=== PATIENT | female | born 1975 | race Caucasian/White ===

== ENCOUNTER 2017-10-13 23:05 | Emergency (ER) | payer SELFPAY ==
[2017-10-13 23:07] VITALS: BP 148/87; PULSE 90; RESP 16; TEMP 35.7; O2SAT 98; BMI 33.6
--- NOTE | 2017-10-13 23:25 | CT_ITS ---
STUDY: CT ABDOMEN AND PELVIS WITHOUT CONTRAST REASON FOR EXAM: Female, 41 years old. Right-sided pain for one week. Difficulty urinating. RADIATION DOSAGE (If Supplied By Facility): CTDIvol = ( 17.88 ) mGy, DLP = ( 920.40 ) mGycm TECHNIQUE: Transaxial images were obtained from the dome of the diaphragm to the symphysis pubis without oral contrast, and without intravenous contrast. Sagittal and coronal images were reconstructed. Individualized dose optimization techniques were used for this CT. COMPARISON: None. FINDINGS: There is mild atelectasis in the visualized lung bases. The visualized portions of the heart are within normal limits. Normal liver. Normal gallbladder and extrahepatic biliary system. Normal spleen. Normal pancreas. Normal bilateral adrenal glands. Normal right kidney. Normal left kidney. Normal visualized stomach. Normal small intestine. There are multiple colonic diverticula consistent with diverticulosis. The appendix is visualized on axial images 125-134 and it appears normal.. There is minimal atherosclerotic calcification of the abdominal aorta, without a demonstrated aneurysm. Normal inferior vena cava. Normal retroperitoneum. Normal urinary bladder. There is absence of the uterus consistent with a prior hysterectomy. There is a small umbilical hernia which contains fat, but no bowel. There are multilevel degenerative changes of the visualized lumbar spine. CT/Abdomen/Pelvis without Cont IMPRESSION: Previous hysterectomy. Colonic diverticulosis, without evidence for acute diverticulitis. No evidence for acute pathology. No demonstrated urinary calculi or hydronephrosis. No evidence for appendicitis. Electronically Signed: Robbie Sorto MD at 0:54 EST , Service support ,
--- NOTE | 2017-10-13 23:27 | ED.DCSUM_ITS ---
- ER Visit Summary Date of Service: 10/13/17 Chief Complaint: Abdominal pain History of Present Illness: The patient is a 41 F waxing and waning right lower quadrant abdominal pain radiating to the flank over the past week. No nausea, vomiting, diarrhea. Normal bowels. States decreased urine output. No frequency or dysuria or hematuria. Intermittent sharp sensations. Total hysterectomy in the past. No fever, chills, sweats. Using Tylenol Motrin, last dose was 3 hours ago. Pain currently a 9 out of 10. Denies history of kidney stones. Last meal was 6 PM this evening. Physical Examination: General: Alert and oriented ?3, no acute distress HEENT: Normocephalic, atraumatic. Moist mucosa membranes Neck: supple, nontender. Cardiovascular: Regular rate and rhythm, no murmurs Respiratory: Normal breath sounds, symmetric, no distress Abdomen: Soft, mild tenderness right lower quadrant without guarding or rebound , nondistended. Negative Acuña's. Back: No CVA tenderness, no rash. Extremities: Nontender, no edema, pulses intact ?4 Neuro: no focal neurological deficits. Test Results: WBC 8.9. Creatinine 0.94. UA with [address] abdomen pelvis: Normal appendix. No obstructive uropathy. Emergency Department Course and Treatment: Patient presents with right lower quadrant pain radiating to the flank. Nontoxic. She was treated with morphine. Renal stone protocol negative except for mild hematuria. Normal appendix. Discussed with patient this time continue Tylenol or Motrin. She has a remote tobacco history. Hematuria should be given follow-up with urology. Patient return if any worsening symptoms. All questions were answered. Treatment Plan: [] Disposition: Discharge Impression: 1. Abdominal pain 2. Hematuria This note was generated with [employer] dictation software. It may contain incorrect words, spelling, and punctuation that were not noted in review of the chart prior to signing ED Disposition - Plan for ED Patient: Disposition: Home or Assisted Living Chief Complaint: Abd Pain Diagnosis: Hematuria, Abdominal pain Instructions: ED Abdominal Pain Unkn Cause, ED Hematuria Referrals: Care Physician,No Primary [Primary Care Provider] - Kevin Knowles MD [STAFF PHYSICIAN] - 5-7 Days
[2017-10-13 23:43] LABS: Mucous, Urine 0 SEEN /hpf (<or=2+); Red Blood Cells-Urine 0 SEEN /hpf (0-5); White Blood Cells 0 SEEN /hpf (0-5)
[2017-10-13 23:45] LABS: Color, Urine Yellow (Yellow); Glucose, Dipstick Normal (Normal); Ketone-Dipstick Negative (Negative); Leukocyte Esterase-Dipstick Negative /ul (Negative); Nitrite-Dipstick Negative (Negative); Occult Blood-Urine 25 /ul (Negative); Protein-Dipstick 15 mg/dl (Negative); Urine Bilirubin Dipstick Negative (Negative); Urine Clarity Clear (Clear); Urine Urobilinogen Normal (Normal)
[2017-10-13 23:52] LABS: Bacteria RARE /hpf (None Seen); Squamous Epithelial Cells - UA 0-5 SEEN /hpf (5-10)
[2017-10-13] MEDS: 0.9% Normal Saline 1,000 ML 250 ML IV (23:53)
[2017-10-13 23:55] LABS: Absolute Lymphocyte Count 3.48 X10^3/ul (0.83-4.51); Absolute Neutrophil Count 4.4 X10^3/uL (2.0-7.7); Basophil# 0.02 X10^3/uL; Basophil% 0.2 % (0-1); Eosinophil# 0.23 X10^3/uL; Eosinophils% 2.6 % (0-5); Hematocrit 37.4 % (37-47); Hemoglobin 12.4 g/dl (12.0-15.0); Lymphocyte # 3.48 X10^3/ul (4.0); Lymphocyte % 39.1 % (19-41); Mean Corp Hgb Conc 33.2 g/gl (32-36); Mean Corpuscular Hgb 28.4 pg (27.0-32.0); Mean Corpuscular Volume 85.8 fL (81-99); Mean Platelet Vol. 9.7 fl (6.2-12.0); Monocyte# 0.81 X10^3/uL; Monocyte% 9.1 % (0-10); Neutrophil # 4.36 X10^3/uL (2.7-7.7); Neutrophil % 48.9 % (47-70); Platelet Count 249 K/mm3 (150-450); RBC Distribution Width CV 12.8 % (11.6-14.6); RBC Distribution Width SD 39.4 fl (35.1-43.9); Red Blood Count 4.36 M/mm3 (4.2-5.4); White Blood Count 8.9 K/mm3 (4.4-11.0)
[2017-10-14 00:01] LABS: POSITIVE COUNT NO; POSITIVE DIFFERENTIAL NO; POSITIVE MORPHOLOGY NO
[2017-10-14 00:12] LABS: Anion Gap 8 (5-15); BUN 21 mg/dL (7-18); BUN/Creat Ratio 22.3 RATIO (10-20); Calcium,Total 8.5 mg/dL (8.5-10.1); Chloride 107 mmol/L (98-107); Creatinine, Serum 0.94 mg/dL (0.55-1.02); EST Glomerular Filtration Rate 69 mL/min (>60); Est Glom Filt Rate - Afr Amer 83 mL/min (>60); Estimated Creatinine Clearance 63.84 ml/min; Glucose 90 mg/dL (74-106); Potassium 3.9 mmol/L (3.5-5.1); Sodium Level 143 mmol/L (136-145)
[2017-10-14 01:40] VITALS: PULSE 72; PULSE 74; RESP 18; O2SAT 97
== END 2017-10-14 01:41 | disposition home or self-care (01) ==
PROVIDERS: Emergency Provider Emergency Medicine
DX: R31.9 Hematuria, unspecified (principal); R10.31 Right lower quadrant pain; Z72.0 Tobacco use
CPT/HCPCS: 74176; 80048; 81001; 85025; 96361; 96374; 99284; J7030; A4216

== ENCOUNTER 2019-10-02 12:30 | Emergency (ER) | payer OTHER, SELFPAY ==
[2019-10-02 12:31] VITALS: BP 137/89; PULSE 100; RESP 18; TEMP 37.1; O2SAT 94; BMI 38.3
--- NOTE | 2019-10-02 13:39 | RAD_ITS ---
EXAM DESCRIPTION: PORTABLE AP CHEST CLINICAL HISTORY: 43 years Female, COUGH, FEVER, FLU COUGH, FEVER, FLU COMPARISON: None FINDINGS: The thorax is intact. The heart and mediastinum appear to be within normal limits. The lungs appear to be well areated without evidence of pneumonic consolidation or pleural effusion. RAD/Chest PA and Lateral IMPRESSION: Normal portable chest. Electronically Signed: Ray Abreu, at 14:13 EST Tel , Service support ,
[2019-10-02 13:51] LABS: Absolute Lymphocyte Count 1.41 X10^3/uL (0.83-4.51); Absolute Neutrophil Count 9.9 X10^3/uL (2.0-7.7); Basophil# 0.01 X10^3/uL; Basophil% 0.1 % (0-1); Eosinophil# 0.01 X10^3/uL; Eosinophils% 0.1 % (0-5); Hemoglobin 14.7 g/dL (12.0-15.0); Lymphocyte # 1.41 X10^3/ul (4.0); Lymphocyte % 11.2 % (19-41); Mean Corp Hgb Conc 33.4 g/dL (32-36); Mean Corpuscular Hgb 27.9 pg (27.0-32.0); Mean Corpuscular Volume 83.5 fL (81-99); Mean Platelet Vol. 9.7 fl (6.2-12.0); Monocyte# 1.17 X10^3/uL; Monocyte% 9.3 % (0-10); NRBC Flagged by Analyzer 0 % (0-5); Neutrophil # 9.94 X10^3/uL (2.7-7.7); Neutrophil % 78.9 % (47-70); Platelet Count 219 K/mm3 (150-450); RBC Distribution Width CV 12.9 % (11.6-14.6); RBC Distribution Width SD 39.1 fl (35.1-43.9); Red Blood Count 5.27 M/mm3 (4.2-5.4); White Blood Count 12.6 K/mm3 (4.4-11.0)
[2019-10-02] MEDS: Ondansetron 4 MG/2 ML Vial IV (13:58)
[2019-10-02] MEDS: 0.9% Normal Saline 1,000 ML 1000 ML IV (13:58)
[2019-10-02 14:12] LABS: ALB/GLOB Ratio 0.9 RATIO (0.9-2.4); AST(SGOT) 21 U/L (15-37); Alanine Aminotransfer ALT/SGPT 41 U/L (13-56); Albumin, Serum 4.1 g/dL (3.2-5.0); Alkaline Phosphatase 102 U/L (45-117); Anion Gap 7 (5-15); BUN 6 mg/dL (7-18); BUN/Creat Ratio 6.2 RATIO (10-20); Calcium,Total 9.4 mg/dL (8.5-10.1); Chloride 109 mmol/L (98-107); Creatinine, Serum 0.96 mg/dL (0.55-1.02); EST Glomerular Filtration Rate 67 mL/min (>60); Est Glom Filt Rate - Afr Amer 81 mL/min (>60); Estimated Creatinine Clearance 61.22 ml/min; Globulin 4.7 g/dL (2.2-4.2); Glucose 131 mg/dL (74-106); Potassium 3.2 mmol/L (3.5-5.1); Protein, Total 8.8 g/dL (6.4-8.2); Sodium Level 140 mmol/L (136-145)
[2019-10-02 14:37] VITALS: BP 137/89; PULSE 100; RESP 18; TEMP 37.1; O2SAT 94
[2019-10-02 14:46] LABS: Mucous, Urine 0 SEEN /hpf (<or=2+); Red Blood Cells-Urine 0 SEEN /hpf (0-5); White Blood Cells 0 SEEN /hpf (0-5)
[2019-10-02 14:49] LABS: Color, Urine Yellow (Yellow); Glucose, Dipstick Normal (Normal); Ketone-Dipstick 5 mg/dl (Negative); Leukocyte Esterase-Dipstick Negative /ul (Negative); Nitrite-Dipstick Negative (Negative); Occult Blood-Urine 25 /ul (Negative); Protein-Dipstick 100 mg/dl (Negative); Urine Bilirubin Dipstick Negative (Negative); Urine Clarity Sl. Cloudy (Clear); Urine Urobilinogen Normal (Normal)
[2019-10-02 14:52] LABS: Internal QC Validated? YES +Cl - CLEAR BKGD; Pregnancy, Urine Negative Negative
[2019-10-02 14:59] LABS: Bacteria 1+ /hpf (None Seen); Squamous Epithelial Cells - UA 0-5 SEEN /hpf (5-10)
[2019-10-02 15:10] VITALS: BP 145/85; PULSE 95; RESP 16; TEMP 38.4; O2SAT 95
[2019-10-02] MEDS: 0.9% Normal Saline 1,000 ML 150 ML IV (15:12)
--- NOTE | 2019-10-02 15:51 | ED.DCSUM_ITS ---
History of Present Illness Chief Complaint: Fever Informant: Patient Onset: Days Context: Gradual Onset Timing: Continuous Associated Symptoms: Chills, Cough, Rhinorrhea, Sore throat, Yellow sputum Chest Pain: None Narrative: She is a 43-year-old female with no significant past medical history presenting with 1 week of flulike illness. Patient states 9 days ago she developed a headache. For the past week she has been feeling like she has a flu. She states she felt like she was getting a lot better than she start developing more chest congestion. She associated fever, decreased oral intake, diarrhea, nausea and cramping abdominal pain. She denies any blood in her stool. She denies any urinary symptoms. She also has associated sore throat, hoarse voice and bilateral ear pain. Her cough is been productive of yellow sputum. Her similar symptoms but he seemed to get better. Patient is concerned that maybe she developed pneumonia as she seems to gotten a little bit worse. She denies any other complaints at this time. Past Medical History - Allergies and Home Meds Allergies/Adverse Reactions: Allergies No Known Allergies Allergy (Verified 10/02/19 12:34) Primary Care Physician: Care Physician,No Primary [Primary Care Provider] - Past Medical History: None Surgical History: noncontributory Lives: Spouse/ Significant Other Smoking Status: Former smoker Review of Systems General: Reports: Chills, Fever, Malaise. Denies: Sweats Eyes: Denies: Visual changes - bilaterally, Diplopia ENT: Reports: Bilateral ear pain, Rhinorrhea, Sore throat Cardiovascular: Denies: Chest pain, Palpitations Respiratory: Reports: Cough, Sputum. Denies: Dyspnea, Dyspnea on exertion Gastrointestinal: Reports: Nausea, Diarrhea. Denies: Abdominal pain, Vomiting, Melena, Hematochezia Genitourinary: Denies: Dysuria, Hematuria, Frequency Musculoskeletal: Reports: Myalgias. Denies: Swelling, Extremity Pain Skin: Denies: Rash Neurological: Denies: Headache, Weakness, Numbness Physical Exam Vital Signs/Narrative: Vital Signs Temp Pulse Resp BP Pulse Ox 10/02/19 15:10 101.1 F H 95 16 145/85 H 95 10/02/19 14:37 98.7 F 100 18 137/89 H 94 10/02/19 12:31 98.7 F 100 18 137/89 H 94 Inital Vital Signs reviewed: Yes General: Well nourished, Well developed Head: Normocephalic, Atraumatic Eyes: Perrl, EOMI. Negative for: Pale conjunctiva ENT: Moist mucous membranes, No rhinorrhea, TM's clear. Negative for: Sinus tenderness Neck: Supple, Nontender Cardiovascular: Regular rate, Regular rhythm, No murmurs Respiratory: No distress, CTA bilaterally, Chest nontender Abdomen: Soft, Nontender, Nondistended, Normal bowel sounds Back: Nontender, Normal Inspection Extremities: Nontender, No edema Skin: Normal color, No rash Neurological: Alert, Oriented x3, Cranial nerves II-XII grossly intact, Normal Strength, Normal Sensation Psychological: Normal affect Diagnostic/Tx/Re-eval Chest X-Ray - ED: 1 View, Read by ED Physician, Read by Radiologist, No Acute Disease Clinical Impression(s) from Imaging Studies Chest X-Ray 10/02/19 13:39 IMPRESSION: Normal portable chest. Electronically Signed: Ray Abreu, at 14:13 EST Tel , Service support , Laboratory Data 10/02/19 10/02/19 10/02/19 13:35 13:35 14:35 WBC 12.6 H RBC 5.27 Hgb 14.7 Hct 44.0 MCV 83.5 MCH 27.9 MCHC 33.4 RDW Std Deviation 39.1 RDW Coeff of Humberto 12.9 Plt Count 219 MPV 9.7 Immature Gran % (Auto) 0.400 Neut % (Auto) 78.9 H Lymph % (Auto) 11.2 L Bowie % (Auto) 9.3 Eos % (Auto) 0.1 Baso % (Auto) 0.1 Absolute Neuts (auto) 9.9 H Absolute Lymphs (auto) 1.41 Nucleated RBC % 0 Sodium 140 Potassium 3.2 L Chloride 109 H Carbon Dioxide 24.0 Anion Gap 7 BUN 6 L Creatinine 0.96 Estim Creat Clear Calc 61.22 Est GFR (MDRD) Af Amer 81 Est GFR (MDRD) Non-Af 67 BUN/Creatinine Ratio 6.2 L Glucose 131 H Calcium 9.4 Total Bilirubin 0.30 AST 21 ALT 41 Alkaline Phosphatase 102 Total Protein 8.8 H Albumin 4.1 Globulin 4.7 H Albumin/Globulin Ratio 0.9 Urine Color Urine Clarity Urine pH Ur Specific Warnock Urine Protein Urine Glucose (UA) Urine Ketones Urine Occult Blood Urine Nitrite Urine Bilirubin Urine Urobilinogen Ur Leukocyte Esterase Urine RBC Urine WBC Ur Squamous Epith Cells Urine Bacteria Urine Mucus Urine Test Negative 10/02/19 14:35 WBC RBC Hgb Hct MCV MCH MCHC RDW Std Deviation RDW Coeff of Humberto Plt Count MPV Immature Gran % (Auto) Neut % (Auto) Lymph % (Auto) Bowie % (Auto) Eos % (Auto) Baso % (Auto) Absolute Neuts (auto) Absolute Lymphs (auto) Nucleated RBC % Sodium Potassium Chloride Carbon Dioxide Anion Gap BUN Creatinine Estim Creat Clear Calc Est GFR (MDRD) Af Amer Est GFR (MDRD) Non-Af BUN/Creatinine Ratio Glucose Calcium Total Bilirubin AST ALT Alkaline Phosphatase Total Protein Albumin Globulin Albumin/Globulin Ratio Urine Color Yellow Urine Clarity Sl. Cloudy Urine pH 5.0 Ur Specific Warnock 1.020 Urine Protein 100 H Urine Glucose (UA) Normal Urine Ketones 5 H Urine Occult Blood 25 H Urine Nitrite Negative Urine Bilirubin Negative Urine Urobilinogen Normal Ur Leukocyte Esterase Negative Urine RBC 0 SEEN Urine WBC 0 SEEN Ur Squamous Epith Cells 0-5 SEEN Urine Bacteria 1+ Urine Mucus 0 SEEN Urine Test Fluid Bolus: NS 2000ml - Medical Decision Making Evaluated for flulike illness. Her has similar symptoms. Likely she does have influenza. She is outside the window for Tamiflu and is hemodynamically stable. I did not swab her for the flu because it will not change my management. Patient is initially given Zofran and IV fluids. She does have some improvement but her nausea returns. She is then given Toradol and Phenergan. Work-up is otherwise largely unremarkable. She has a very mild leukocytosis but no obvious bacterial infection requiring antibiotics. Chest x- rays does not show any pneumonia. Urinalysis is normal. She is not have any significant electrolyte abnormality or other severe signs of dehydration. I do think patient is a good candidate for outpatient follow-up. She will be discharged home with a prescription for Zofran and Phenergan. She is instructed to continue to alternate Tylenol and ibuprofen as well as Mucinex as needed for symptoms. Patient is counseled on signs and symptoms requiring return to the emergency room. Patient verbalizes agreement and understand this plan. Patient discharged home in stable and improved condition. ED Disposition - Plan for ED Patient: Disposition: Home or Assisted Living Diagnosis: Flu-like symptoms, Nausea Instructions: INFLUENZA (Adult) Prescriptions: proMETHazine tablet [Phenergan] 25 mg PO Q6H PRN PRN #10 tab PRN Reason: Nausea Transmission Status: Pending to [id number] Ondansetron [Zofran Odt] 4 mg PO Q8H PRN PRN #10 tab PRN Reason: Nausea Transmission Status: Pending to [id number] Referrals: Care Physician,No Primary [Primary Care Provider] - Additional Instructions: You and your chest x-ray. Likely symptoms are from your recent influenza illness. Continue to drink fluids and alternate Tylenol and ibuprofen as needed for discomfort and fever. You do not need antibiotics at this time. You are outside the window for Tamiflu. Please follow-up with your primary care doctor for reevaluation next week. You can take Mucinex D as needed for decongestant/cough.
[2019-10-02] MEDS: Ketorolac 15 MG/ML Vial IV (16:22)
[2019-10-02] MEDS: proMETHazine 25 MG/ML Syringe 12.5 MG IV (16:23)
[2019-10-02 16:43] VITALS: BP 145/85; PULSE 95; RESP 16; O2SAT 95
== END 2019-10-02 16:44 | disposition home or self-care (01) ==
PROVIDERS: Emergency Provider Emergency Medicine
DX: R11.0 Nausea (principal); Z87.891 Personal history of nicotine dependence
CPT/HCPCS: 71046; 80053; 81001; 81025; 85025; 96361; 96374; 96375; 99283; J7030; A4216; J2405

== ENCOUNTER 2024-07-24 10:44 | Outpatient (RCR) | payer OTHER, SELFPAY ==
--- NOTE | 2024-07-24 12:37 | HP.OTFCE_ITS ---
Task Lift Floor (Occasional 1-33% of Day): 20 Floor (Frequent 34-66% of Day): 10 Floor (Constant 67-100% of Day): 4.21 Floor PDL: Light Knee (Occasional 1-33% of Day): 20 Knee (Frequent 34-66% of Day): 10 Knee (Constant 67-100% of Day): 4.21 Knee PDL: Light Waist (Occasional 1-33% of Day): 20 Waist (Frequent 34-66% of Day): 10 Waist (Constant 67-100% of Day): 4.21 Waist PDL: Light Shoulder (Occasional 1-33% of Day): 20 Shoulder (Frequent 34-66% of Day): 10 Shoulder (Constant 67-100% of Day): 4.21 Shoulder PDL: Light Overhead (Occasional 1-33% of Day): 15 Overhead (Frequent 34-66% of Day): 7.5 Overhead (Constant 67-100% of Day): 3.15 Overhead PDL: Sedentary-Light Comments: pt scores as light for floor, knee, waist as well as shoulder lift. pt scores as sedentary-light for overhead lift. Work Activity/Posture Bending: Frequent Ability (34-66% of day) Squatting: Occasional Ability (1-33% of day) Kneeling: No Ablility (0% of day) Reaching up: Frequent Ability (34-66% of day) Sitting: Frequent Ability (34-66% of day) Walking: Occasional Ability (1-33% of day) Standing: Occasional Ability (1-33% of day) Reference Reference: Duration Sedentary Sedentary Light Light Light Medium Medium Medium Heavy Very Heavy Heavy Occasional (0-33% of day) Frequent (34-66% of day) Constant (67-100% of day) 10 # Negligible Negligible 15 # 8 # Negligible 20 # 10# Negli. 35 # 18 # 7 # 50 # 25 # 10 # 75 # 100 # >100 # 38 # 50 # >50 # 15 # 20 # >20 # Patient Information Height: 5 ft 3 in Weight:: 91.626 kg Hand Dominance: R Medical History Medical History Including Restrictions: Pt arrives with dx of chronic pain, fibromyalgia, as well as multiple joint pain. This female is filing for disability. Pt states she has been dealing with her chronic pain since childhood. Pt states her pain is primarily in lower back as well as hips. pt is having nerve oblation in two weeks. Pt has done physical therapy as well as seen a chiropractor for pain in the past however no relief. Pt use to wear braces on knees however since has had knees replaced last year. pt states she regularly stretches, changes positions often. has taken Tylenol and Aleve to attempt to manage. pt started with pain management in may no currently giving pt medication for anything at this time. pt states she has major depressive disorder as well as PTSD and anxiety is on medication for. pt does start trauma therapy in Aug. 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 Pt with flight of stairs to second floor per pt approx 20 steps with unilateral hand rail where pt craft room and dogs stay. pt states she goes upstairs everyday approx 4x a day. pts bed and bath are on main level bath is t/s combo no bars no seat and commode standard no bars. Pt is I in ADL tasks light IADL tasks. Pt drives 2x a week. Pt walks without any AD. Pt with x1 fall over the summer lost balance while out mowing the yard no major injuries. Physical Examination Physical Examination: pt walks from waiting area to OT desk no AD slow pace small limp when walking Baseline sitting for intake of history: 02 98% HR 77 bpm ROM: BUE AROM WFL BLE AROM WFL Strength: Upper Extremity: L shoulder flexion: 7.5# R shoulder flexion: 6.2# L bicep:13.5# R bicep: 13.2# L tricep:11.3# R tricep:11.7# L ER: 14.6# R ER: 17.4# Lower Extremity: L hip flexor: 14.7# R hip flexor: 17.1# L hamstrin.3# R hamstrin# L quad: 16.4# R quad: 15.5# Right Grades 9 Thru 12 Visiting Teacher Strength Average: 48.33 Right Grades 9 Thru 12 Visiting Teacher Strength Percentile: 8th percentile Left Grades 9 Thru 12 Visiting Teacher Strength Average: 46.66 Left Grades 9 Thru 12 Visiting Teacher Strength Percentile: 9th percentile Right Lateral Pinch Average: 7.66 Right Lateral Pinch Percentile: < 10th percentile Left Lateral Pinch Average: 7.33 Left Lateral Pinch Percentile: <10 percentile Right Tripod Pinch Average: 9.00 Right Tripod Pinch Percentile: 10th percentile Left Tripod Pinch Average: 8.33 Left Tripod Pinch Percentile: 10th percentile Sensation: BLE numbness and tingling of feet occasionally R UE occ numbness tingling coming from top of arm to hand-- unable to ID dorsum or volar side of hand semmes-kai monofilament test: R volar side all digits 2.44 indicating normal sensation R dorsal side thumb as well as D2-4 at 2.44 and D5 at 2.83 indicating normal sensation Fine Motor: 9 hole peg assessment: R hand trial 1: 28 sec R hand trial 2: 25 sec R hand trial 3: 25 sec average R hand: 26 seconds indicating pt is between 0-10th percentile for age and gender begins to bother pt shoulder 4/10 nagging pain L hand trial 1:25 sec L hand trial 2: 28 sec L hand trial 3: 24 sec L hand Average: 25.6 indicating pt between 10th and 25th percentile for age and gender Balance: standing forward reach score 13 indicating pt is not at increased risk for falls Non Material Handling Activities Bending: BENDING: trial of 3: 10/07 10 at own pace: 05/16 10x fast: 05/16 HR 99 bpm and 02 93% pt with standing RB inbetween sets during 10x stops at 5 and then again at 7 for standing break bends at waist legs straight to touch floor alternates between using desk for unilateral support to no UE support overall pain 04/16-- states legs starting to bother her more at this time Squatting: SQUATTING: trial of 3: 10/07 10x at own pace: 05/16 10x fast: 01/14 HR 105 bpm and 02 99% R knee pain increases causing pt to be unable to complete. uses unilateral support of desk for stability close stance pushes off of leg with L to come up standing RB inbetween sets labored breathing comes to half squat during reps unable t come further Kneeling: KNEELING: trial of 3: 03 unable to complete due to B knees states if she gets on floor she has to roll to side on L hip to get back up Reaching out/up: REACHING OUT: trial of 3: 10/07 10x own pace: 05/16 10x fast: 05/16 HR 91 bpm and 02 99%-- begins to have pinch sensation at R arm ulnar side of wrist REACHING UP: trial of 3: 10/07 10x at own pace: 05/16 10x fast: 05/16 HR 117 bpm and 02 98% rest break at fast rep number 6 facial grimace during task overall pain 05/16 Walking: able to walk from OT desk 2 laps around gym and back to OT desk total of 844 feet no rest break no support of wall rails slight limp when walking keeps steady slow pace-- able to talk to walking portion of task HR 107 bpm and 02 98% pt states she is able to get through grocery store walking however is a painful task Standing: per pt able to stand for 10 min before needing to sit due to back as well as leg pain pt stands for lifting portion then walk for total of 10 min during FCE Sitting: pt states she can sit for approx 1 hour before needing to get up or lay down with repositioning pt sits for intake of assessment as well as ROM and muscle testing for 40 min before standing does re position self often shifting weight in chair Climbing Stairs: Pt climbed stairs 10 up and 10 down using BUE hand rails reciprocal pattern up as well as down HR 106 bpm and 02 98% Dynamic Occasional Lifting Capacity Floor Lift: Floor Lift: Box (15#)+5#= total of 20# HR 106 bpm and 02 99% overall pain 05/16 able to squat down to lift from lower portion of box and bring up to counter and back down Knee Lift: Knee Lift: box (15#)+5#= total of 20# HR 1128 bpm and 02 99% sits for RB after lift able to squat to retrieve for upper portion of box overall pain 10/10 Waist Lift: Waist Lift: box (153)+5#= total of 20# HR 98 bpm and 02 99% overall pain 10/10 one small side step to L side hold load close to body Shoulder Lift: Shoulder Lift: Box (15#)+5#= total of 20# HR 99 bpm and 02 98% overall pain 10/10 lifts from bottom handle of box sitting RB after completion feeling pain more in her back now Overhead Lift: Overhead Lift: Box (15#) no additional weight = total of 15# HR 90 bpm and 02 95% overall pain 10/10 feeling it more in upper back holds load close to complete seated RB after completion Carrying: Box (15#) no additional weight total of 15# walking 52 feet with box HR 104 bpm and HR 95% overall pain 10/10 standing RB
== END 2024-07-24 13:05 | disposition home or self-care (01) ==
LOC: OT 10:44
PROVIDERS: PCP Internal Medicine; Referring Provider Nurse Practitioner; Visit Provider Nurse Practitioner
DX: G89.29 Other chronic pain (principal); M79.7 Fibromyalgia; M25.50 Pain in unspecified joint
CPT/HCPCS: 97750